=== PATIENT | male | born 1985 | race Caucasian/White ===

== ENCOUNTER 2019-09-06 08:10 | Outpatient (CLI) | payer BC, SELFPAY ==
[2019-09-06 18:41] LABS: Basophils Absolute Auto 0.1 K/mm3 (0.0-0.1); Basophils Percent Auto 1.1 % (0.2-1.2); Eosinophils Absolute Auto 0.1 K/mm3 (0-0.3); Eosinophils Percent Auto 2.2 % (0-4.4); Hematocrit 48.2 % (42.0-52.0); Hemoglobin 14.9 g/dL (14.0-18.0); Immature Granulocyte Absolute 0.03 K/mm3 (0.00-0.031); Immature Granulocyte Percent A 0.5 % (0-0.5); Lymphocytes Absolute Auto 1.55 K/mm3 (0.9-3.2); Mean Corpuscular HGB Conc 30.9 g/dl (32-36); Mean Corpuscular Volume 87.5 fl (80-100); Mean Platelet Volume 11.3 fl (7.4-10.4); Monocytes Absolute Auto 0.5 K/mm3 (0.1-0.6); Neutrophils Absolute Auto 3.3 K/mm3 (1.3-6.7); Neutrophils Percent Auto 59.2 % (45.5-73.1); Platelet Count Result 256 k/mm3 (150-375); Red Blood Count 5.51 M/mm3 (4.6-6.20); White Blood Count 5.5 K/mm3 (4.5-10.0)
[2019-09-06 18:50] LABS: Add Urine Microscopic? NO; Appearance Urine Clear (Clear); Bilirubin Urine Negative (Negative); Blood Urine Negative (Negative); Color Urine Yellow (Yellow); Glucose Urine UA Negative (Negative); Ketones Urine Negative (Negative); Leukocyte Esterase Ur Negative LEU/UL (Negative); Nitrate Urine Negative (Negative); Protein Urine Negative (Negative); Specific Grav Ur 1.012 (1.001-1.035); Urobilinogen Urine Negative mg/dL (<2.0)
[2019-09-06 18:53] LABS: Mucus Urine Rare /lpf; RBC Urine 0-2 /hpf (0-2); WBC Urine 0-3 /hpf
[2019-09-06 19:02] LABS: Alanine Aminotransferase 44 U/L (4-50); Albumin Level 4.6 g/dL (3.5-5.1); Alkaline Phosphatase 87 U/L (38-126); Aspartate Amino Transferase 33 U/L (17-59); Bilirubin,Total 0.7 mg/dL (0.2-1.3); Blood Urea Nitrogen 12 mg/dL (9-20); Calcium 9.9 mg/dL (8.4-10.2); Carbon Dioxide 28 mmol/L (22-30); Chloride 96 mmol/L (98-107); Cholesterol 162 mg/dL (0-200); Estimated Glomerular Filt Rate > 60; Glucose 98 mg/dL (75-110); HDL Direct 31 mg/dL; Iron 63 ug/dL (49-181); Potassium 4.3 mmol/L (3.4-5.0); Sodium 136 mmol/L (137-145); Triglycerides 74 mg/dL (<150)
[2019-09-06 19:05] LABS: Erythrocyte Sedimentation Rate 5 mm/hr (0-20)
[2019-09-06 19:12] LABS: LDL Cholesterol Direct 121 mg/dL; Percent Iron Saturation 16 % (20-50)
[2019-09-06 20:04] LABS: Vitamin D 25 Hydroxy 23.8 ng/mL
[2019-09-06 20:13] LABS: Folic Acid > 20.0 ng/mL (2.76->20)
[2019-09-10 12:21] LABS: C-Peptide 1.05 ng/mL (0.80-3.85)
[2019-09-12 12:02] LABS: Testosterone Total 492 ng/dL (250-1100)
== END 2019-09-06 08:11 | disposition home or self-care (01) ==
LOC: ANHBWCLAB 08:16
PROVIDERS: PCP Family Medicine; Visit Provider Family Medicine
DX: G47.10 Hypersomnia, unspecified (principal); Z79.899 Other long term (current) drug therapy; Z01.89 Encounter for other specified special examinations; K21.9 Gastro-esophageal reflux disease without esophagitis; R53.83 Other fatigue; R20.2 Paresthesia of skin; M79.601 Pain in right arm; M79.602 Pain in left arm; R51 Headache; N99.89 Other postprocedural complications and disorders of genitourinary system
CPT/HCPCS: 36415; 80053; 80061; 81003; 82306; 82607; 82728; 82746; 83540; 83550; 84402; 84403; 84443; 84681; 85025; 85652

== ENCOUNTER 2019-12-26 08:30 | Outpatient (CLI) | payer BC, SELFPAY ==
--- NOTE | ~2019-12-26 | MR_ITS ---
EXAMINATION: MR cervical spine wo con DATE: 12/26/2019 09:39 INDICATION: Paresthesias. Bilateral hand and shoulder numbness. TECHNIQUE: Magnetic resonance imaging (MRI) of the cervical spine was performed without intravenous c ontrast. Sequences included sagittal T2-weighted FSE, sagittal STIR FSE, sagittal T1-weighted FSE, ax ial MERGE, and axial T2-weighted FSE. COMPARISON: None FINDINGS: Bone alignment is normal. There is mild chronic anterior wedging of T1 vertebral body. Inte rvertebral disc heights are normal. The spinal cord signal intensity is normal. The following disc le vels are specifically discussed: C2-C3: The disc does not extend beyond the endplate margin. There is moderate left uncovertebral join t osteoarthritis. There is mild bilateral facet joint osteoarthritis. There is mild left neural magdalene inal stenosis. There is no central canal stenosis. C3-C4: The disc does not extend beyond the endplate margin. There is moderate left uncovertebral join t osteoarthritis. There is mild bilateral facet joint osteoarthritis. There is mild left neural magdalene inal stenosis. There is no central canal stenosis. C4-C5: The disc does not extend beyond the endplate margin. There is moderate bilateral uncovertebral joint osteoarthritis. There is no facet joint osteoarthritis. There is mild bilateral neural foramin al stenosis. There is no central canal stenosis. C5-C6: The disc does not extend beyond the endplate margin. There is moderate right and mild left unc overtebral joint osteoarthritis. There is mild bilateral facet joint osteoarthritis. There is moderat e right neural foraminal stenosis. There is no central canal stenosis. C6-C7: The disc does not extend beyond the endplate margin. There is mild bilateral uncovertebral wilmer nt osteoarthritis. There is mild bilateral facet joint osteoarthritis. There is mild bilateral neural foraminal stenosis. There is no central canal stenosis. C7-T1: The disc does not extend beyond the endplate margin. There is no uncovertebral joint osteoarth ritis. There is mild bilateral facet joint osteoarthritis. There is no neural foraminal stenosis. The re is no central canal stenosis. IMPRESSION: 1. Mild cervical spondylosis. Reviewed, dictated and finalized at location E.
== END 2019-12-26 08:31 | disposition home or self-care (01) ==
PROVIDERS: PCP Family Medicine; Visit Provider Psychiatry & Neurology Neurology
DX: R20.2 Paresthesia of skin (principal); M47.812 Spondylosis without myelopathy or radiculopathy, cervical region
CPT/HCPCS: 72141

== ENCOUNTER 2020-02-13 12:33 | Outpatient (CLI) | payer BC, SELFPAY ==
--- NOTE | ~2020-02-13 | CT_ITS ---
EXAMINATION: CT abdomen pelvis wo con DATE: 02/13/2020 13:18 INDICATION: Low abdominal pain. TECHNIQUE: Computed tomography (CT) of the abdomen and pelvis was performed without intravenous contr ast. Automated exposure control and iterative reconstruction technique were employed. The dose-length product was 763.59 mGy-cm. COMPARISON: None. FINDINGS: The visualized portions of the lung bases are clear without pneumonia or pleural effusion. The heart size is normal. No pericardial effusion. The liver, gallbladder, spleen, pancreas, adrenal glands, and kidneys are normal. There is no urolithiasis. There are scattered diverticula in the colo n. There is fat stranding around a diverticulum of the sigmoid colon. There is a punctate focus of fr ee intraperitoneal gas near the diverticulum. There are no dilated loops of bowel. The appendix is no rmal. There are no pathologically enlarged lymph nodes. There is trace pelvic ascites. There is mild thoracic and lumbar spondylosis. IMPRESSION: 1. Acute sigmoid diverticulitis with microperforation. No abscess. Reviewed, dictated and finalized at location A.
[2020-02-13 14:02] LABS: Basophils Absolute Auto 0.1 K/mm3 (0.0-0.1); Basophils Percent Auto 0.5 % (0.2-1.2); Eosinophils Absolute Auto 0.1 K/mm3 (0-0.3); Hemoglobin 14.5 g/dL (14.0-18.0); Immature Granulocyte Absolute 0.05 K/mm3 (0.00-0.031); Immature Granulocyte Percent A 0.4 % (0-0.5); Lymphocytes Absolute Auto 1.67 K/mm3 (0.9-3.2); Lymphocytes Percent Auto 13.8 % (18.3-44.2); Mean Corpuscular Hemoglobin 27.4 pg (26-34); Mean Corpuscular Volume 83.2 fl (80-100); Monocytes Absolute Auto 0.9 K/mm3 (0.1-0.6); Monocytes Percent Auto 7.8 % (2.6-8.5); Neutrophils Absolute Auto 9.2 K/mm3 (1.3-6.7); Neutrophils Percent Auto 76.5 % (45.5-73.1); Platelet Count Result 207 k/mm3 (150-375); Red Blood Count 5.29 M/mm3 (4.6-6.20); Red Cell Distribution Width 13.2 % (11.5-14.5); White Blood Count 12.1 K/mm3 (4.5-10.0)
[2020-02-13 14:07] LABS: Add Urine Microscopic? YES; Appearance Urine Clear (Clear); Bilirubin Urine Negative (Negative); Blood Urine Negative (Negative); Color Urine Yellow (Yellow); Glucose Urine UA Negative (Negative); Ketones Urine Negative (Negative); Leukocyte Esterase Ur Negative LEU/UL (NEGATIVE); Mucus Urine Rare /lpf; Nitrate Urine Negative (Negative); Protein Urine 1+ mg/dL (Negative); RBC Urine 0-2 /hpf (0-2); Specific Grav Ur 1.025 (1.001-1.035); Squamous Epithelial Cell Urine Rare /hpf (Few); WBC Urine 0-3 /hpf (0-3)
[2020-02-13 18:06] LABS: Blood Urea Nitrogen 12 mg/dL (9-20); Calcium 8.8 mg/dL (8.4-10.2); Carbon Dioxide 27 mmol/L (22-30); Chloride 104 mmol/L (98-107); Estimated Glomerular Filt Rate > 60; Glucose 93 mg/dL (75-110); Potassium 4.1 mmol/L (3.4-5.0); Sodium 139 mmol/L (137-145)
[2020-02-13 18:13] LABS: CRP 21.6 mg/dL (<1.0)
== END 2020-02-13 12:34 | disposition home or self-care (01) ==
PROVIDERS: PCP Family Medicine; Visit Provider Family Medicine
DX: K57.32 Diverticulitis of large intestine without perforation or abscess without bleeding (principal); R19.8 Other specified symptoms and signs involving the digestive system and abdomen; R30.0 Dysuria; Z79.899 Other long term (current) drug therapy
CPT/HCPCS: 36415; 74176; 80048; 81001; 85025; 86140; 87086; 87491; 87591

== ENCOUNTER 2020-02-13 16:50 | Inpatient (IN) | payer BC, SELFPAY ==
--- NOTE | 2020-02-13 17:06 | PC.NURSE ---
This patient, Bharat Wells, was admitted to Medical Room 342-01. Patient/family oriented to hospital policies and general routines including ID bracelet, bed and alarms, visiting hours, pain management, procedures, bathroom and other care routines, personal items, smoking policy, room service/diet, and visiting hours. Valuables list has been completed. Information on how to activate the Rapid Response Team has been discussed. Patient/Family are encouraged to report perceived risks to care and to ask questions if they do not understand what they are told or what they should do.
[2020-02-13 17:13] VITALS: BP 154/88; PULSE 93; RESP 16; TEMP 36.4; O2SAT 100
[2020-02-13 17:39] LABS: Basophils Absolute Auto 0.1 K/mm3 (0.0-0.1); Basophils Percent Auto 0.4 % (0.2-1.2); Eosinophils Absolute Auto 0.1 K/mm3 (0-0.3); Hematocrit 41.5 % (42.0-52.0); Hemoglobin 13.7 g/dL (14.0-18.0); Immature Granulocyte Absolute 0.05 K/mm3 (0.00-0.031); Immature Granulocyte Percent A 0.4 % (0-0.5); Lymphocytes Absolute Auto 1.37 K/mm3 (0.9-3.2); Mean Corpuscular Hemoglobin 27.6 pg (26-34); Mean Corpuscular Volume 83.5 fl (80-100); Mean Platelet Volume 10.8 fl (7.4-10.4); Monocytes Absolute Auto 0.8 K/mm3 (0.1-0.6); Monocytes Percent Auto 7.1 % (2.6-8.5); Neutrophils Absolute Auto 9.1 K/mm3 (1.3-6.7); Neutrophils Percent Auto 79.1 % (45.5-73.1); Platelet Count Result 193 k/mm3 (150-375); Red Blood Count 4.97 M/mm3 (4.6-6.20); Red Cell Distribution Width 13.3 % (11.5-14.5); White Blood Count 11.5 K/mm3 (4.5-10.0)
[2020-02-13 17:43] VITALS: BMI 32.5
[2020-02-13 22:00] VITALS: BP 148/89; PULSE 89; RESP 18; TEMP 36.4; O2SAT 98
[2020-02-13 22:15] VITALS: PULSE 89; RESP 18; O2SAT 98
[2020-02-13] MEDS: SODIUM CHLORIDE 0.9% IV 1,000 ML 100 ML IV CONT (22:37)
--- NOTE | 2020-02-13 22:45 | PM.IMHP ---
H&P: HPI History of Present Illness Chief complaint: Sigmoid diverticulitis with microperforation. Narrative: Bharat Wells is a previously healthy 34-year-old male who is being directly admitted for further treatment of sigmoid diverticulitis with micro perforation. Last Monday he reports a gradual onset of left lower extremity discomfort that he describes as a pressure-like in nature in addition to feelings of generalized malaise. He felt somewhat better on Monday, however he tweaked his back at work that day and thinks perhaps that overshadowed the abdominal discomfort. The abdominal pain returned on Monday and it has been nearly constant since that time, however not severe enough for him to take analgesics. The pain is worse with eating and some movements, mainly when driving in the car. Additionally he reports night sweats and fever up to 100.7?. He has not had much of an appetite but denies overt nausea and vomiting. He reports an increase in flatus but notes having daily bowel movements which are unremarkable. He had similar symptoms approximately 1 year ago and was seen at a local urgent care, at which time he was prescribed antibiotics for presumed prostatitis however it sounds like it was probably diverticulitis. Today he was sent for a CT of the abdomen and pelvis showing the diverticulitis with microperforation and he is being directly admitted in this setting. At the time my evaluation he notes manageable discomfort and has no other complaints aside from wanting to have a drink of water. Review of Systems Review of Systems: Narrative: Twelve systems were reviewed with pertinent positives and negatives as per HPI. No recent cold or flu symptoms. No cough or shortness of breath. He denies dysuria but does note some suprapubic pressure. No nausea or vomiting. He denies blood in mucus in the stool. He has occasional GERD for which she will take Tums. He also reports daytime somnolence and had a sleep study scheduled for November 2019 however that was canceled and he is still awaiting that be rescheduled. Except as documented, all other systems were reviewed and are negative. [facility] Past Medical History Medical History (Updated 02/13/20 @ 23:54 by Amber Carrasco PA-C) Cervical spine arthritis Cervical spine MRI in December 2019 showed mild spondylosis. Gastroesophageal reflux disease Suspected sleep apnea Patient has upcoming sleep study. Surgical History Surgical History (Updated 02/13/20 @ 20:29 by Amber Carrasco PA-C) History of arthroscopy of left knee History of arthroscopy of left shoulder Family History Family History (Updated 02/13/20 @ 23:53 by Amber Carrasco PA-C) Father Ulcerative colitis Social History Social History (Updated 02/13/20 @ 23:53 by Amber Carrasco PA-C) Social History: The patient lives in [place], [place] with his and 2 young children, aged 4 in 8 months. 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 He chews tobacco and drinks perhaps 20-25 beers a week. No illicit substance use. He designates his as his surrogate decision maker and he wishes to be a full code. Tobacco type: smokeless tobacco Smokeless tobacco user: chewing tobacco Alcohol intake: current Drinks per week: 25 Substance use: never Substance use type: other Other substance usage details: smokeless tobacco Gender identity (if verbalized by the patient): Male Spiritual care concerns: No Meds Home Medications and Allergies Home Medications Medication Instructions Recorded Confirmed Type No Home Medications 02/13/20 02/13/20 History Allergies Allergy/AdvReac Type Severity Reaction Status Date / Time No Known Allergies Allergy Unverified 02/13/20 10:51 Vital Signs Vital Signs - 24 hr 02/13/20 17:13 Temperature 97.5 F L Pulse Rate 93 Respiratory Rate 16 Blood Pressure 154/88 H Pulse Oximetry 100 Exam Narrative: Exam Narrativ
[2020-02-14 05:22] VITALS: BP 135/85; PULSE 82; RESP 16; TEMP 36.8; O2SAT 99
[2020-02-14 05:50] LABS: Basophils Absolute Auto 0.1 K/mm3 (0.0-0.1); Basophils Percent Auto 0.6 % (0.2-1.2); Eosinophils Absolute Auto 0.1 K/mm3 (0-0.3); Eosinophils Percent Auto 1.5 % (0-4.4); Hematocrit 42.2 % (42.0-52.0); Hemoglobin 13.7 g/dL (14.0-18.0); Immature Granulocyte Absolute 0.03 K/mm3 (0.00-0.031); Immature Granulocyte Percent A 0.4 % (0-0.5); Lymphocytes Absolute Auto 1.49 K/mm3 (0.9-3.2); Mean Corpuscular HGB Conc 32.5 g/dl (32-36); Mean Corpuscular Hemoglobin 27.4 pg (26-34); Mean Corpuscular Volume 84.4 fl (80-100); Mean Platelet Volume 10.8 fl (7.4-10.4); Monocytes Absolute Auto 0.7 K/mm3 (0.1-0.6); Neutrophils Absolute Auto 5.9 K/mm3 (1.3-6.7); Neutrophils Percent Auto 71.5 % (45.5-73.1); Platelet Count Result 199 k/mm3 (150-375); Red Cell Distribution Width 13.2 % (11.5-14.5); White Blood Count 8.3 K/mm3 (4.5-10.0)
[2020-02-14 06:08] LABS: Blood Urea Nitrogen 10 mg/dL (9-20); Calcium 8.6 mg/dL (8.4-10.2); Carbon Dioxide 27 mmol/L (22-30); Chloride 103 mmol/L (98-107); Estimated CRCL calculation 118 ml/min; Estimated Glomerular Filt Rate > 60; Glucose 91 mg/dL (75-110); Potassium 4.1 mmol/L (3.4-5.0); Sodium 138 mmol/L (137-145)
[2020-02-14] MEDS: SODIUM CHLORIDE 0.9% IV 1,000 ML 100 ML IV CONT (08:25)
--- NOTE | 2020-02-14 12:10 | PM.CNGS ---
Assessment and Plan Assessment and plan (1) Diverticulitis of intestine with perforation without abscess or bleeding: Code(s): K57.80 - Diverticulitis of intestine, part unspecified, with perforation and abscess without bleeding Status: Acute Assessment and Plan: Abdominal exam is currently benign, tolerating clear liquid diet, white count normal on broad-spectrum antibiotics, will advance to low residue diet, if tolerating diet would change to p.o. antibiotics and DC home, patient to follow up with me in 2 weeks post discharge and will need interval colonoscopy (2) Gastroesophageal reflux disease: Code(s): K21.9 - Gastro-esophageal reflux disease without esophagitis Status: Acute Assessment and Plan: PPI (3) Suspected sleep apnea: Code(s): R29.818 - Other symptoms and signs involving the nervous system Status: Acute Assessment and Plan: management per primary team History of Present Illness Consult details Consult date: 02/14/20 Reason for consult: abdominal pain Requesting physician: Magalie Fregoso PA-C Narrative: Patient was admitted through to the hospitalist service complaining of significant lower abdominal pain progressively worsening over the last week. Patient had CT scan as outpatient that was significant for complicated diverticulitis with microperforation. The patient reports some subjective fevers and chills at home. The patient reports he has been tolerating a diet however, has had a poor appetite. The patient reports normal bowel function. The patient reports a similar episode about a year ago that resolved with p.o. antibiotics. Review of Systems Constitutional: Constitutional: Reports chills, Reports fatigue, Denies lethargy and Denies weakness Eyes: Eyes: Reports no additional eye complaints ENT: Reports Normal hearing present Cardiovascular: Cardiovascular: Denies chest pain, Denies syncope, Denies irregular heart rhythm, Denies leg edema and Denies dyspnea Respiratory: Respiratory: Denies cough and Denies dyspnea Gastrointestinal: Gastrointestinal: Reports abdominal pain, Denies bloating, Denies change in bowel habits, Denies change in stool character, Denies constipation, Denies dysphagia, Denies heartburn, Denies diarrhea, Denies nausea and Denies vomiting Genitourinary: Genitourinary: Denies dysuria, Denies urinary frequency and Denies urinary urgency Musculoskeletal: Musculoskeletal: Denies myalgias, Denies arthralgias and Denies muscle cramps Integumentary/Breasts: Skin/Breast: Denies non-healing lesions and Denies rash Neurologic: Denies syncope, Denies headache(s) and Denies loss of vision Psychiatric: Psychiatric: Reports no additional psychiatric complaints Endocrine: Endocrine: Denies change in body appearance and Denies fatigue Hematologic/Lymphatic: Hematologic/Lymphatic: Denies easy bleeding, Denies easy bruising and Denies lymphadenopathy PMFSH Past Medical History Medical History Cervical spine arthritis Cervical spine MRI in December 2019 showed mild spondylosis. Gastroesophageal reflux disease Suspected sleep apnea Patient has upcoming sleep study. Surgical History Surgical History History of arthroscopy of left knee History of arthroscopy of left shoulder Family History Family History Father Ulcerative colitis Social History Social History Social History: The patient lives in [place], [place] with his and 2 young children, aged 4 in 8 months. 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 He chews tobacco and drinks perhaps 20-25 beers a week. No illicit substance use. He designates his as his surrogate decision maker and he wishes to be a full code. Tobacco type: smokel
[2020-02-14 14:00] VITALS: BP 152/65; PULSE 83; RESP 16; TEMP 36.4; O2SAT 98
--- NOTE | 2020-02-14 15:20 | PM.DS ---
DS: Admitting Diagnosis Admitting Diagnosis Admitting Diagnosis: Diverticulitis of intestine, part unspecified, with perforation and abscess without bleeding DS: Discharge Diagnosis Discharge Diagnosis (1) Diverticulitis of intestine with perforation without abscess or bleeding: Code(s): K57.80 - Diverticulitis of intestine, part unspecified, with perforation and abscess without bleeding Status: Acute Assessment and Plan: He had complaints of left lower abdominal pain. CT a/P showed acute sigmoid diverticulitis with micro perforation and no abscess. He was started on Zosyn and was seen in consultation by General surgery. His abdominal pain improved and he was able to advance his diet to low fiber. Blood cultures were negative. He was rehydrated with IV fluids. He will continue Cipro and Flagyl to complete a total of 7 days treatment and follow-up with Dr. Grace in 2 weeks. (2) Gastroesophageal reflux disease: Code(s): K21.9 - Gastro-esophageal reflux disease without esophagitis Status: Acute Assessment and Plan: He reports chronic, daily GERD symptoms and was started on a daily PPI for symptomatic relief. (3) Suspected sleep apnea: Code(s): R29.818 - Other symptoms and signs involving the nervous system Status: Acute Assessment and Plan: He is scheduled to have an outpatient sleep study in the near future. DS: Summary Hospital Course Reason for hospitalization: Abdominal pain Hospital Course: Date of admission: 02/13/2020 Date of discharge: 02/14/2020 Bharat Wells is a 34-year-old male with a history of GERD and suspected sleep apnea who presented to the hospital for direct admission from his PCP Dr. Chen for further treatment of sigmoid diverticulitis with microperforation. He had feelings of general malaise, as well as night sweats, fever, and poor appetite. He was admitted to the hospitalist service and seen in consultation by General surgery. Please see above for further details. His abdominal exam was benign and his symptoms improved. He was able to tolerate a low-fiber diet which he will continue until further follow-up with Dr. Grace. He will continue oral antibiotics as an outpatient. Given his improvement symptoms, he was determined to no longer require inpatient care. Patient was comfortable discharge plans. He was discharged home in hemodynamically stable condition on 02/14/2020. Status at Discharge Functional status at discharge: independent ambulation Overall status at discharge: patient is progressing back to baseline Time Spent with Patient Time attestation: Total time spent providing and/or coordinating discharge services: 38 minutes Time spent: Greater than 30 minutes Exam Narrative: Exam Narrative: Mr. Wells is examined alone today. He is a well-nourished, well-appearing 34-year-old male who is lying semi recumbent in bed. He appears comfortable and is in no acute respiratory distress. HR 83, BP 152/65, R 16, T 97.6?, 98% on room air Neuro: awake, alert and oriented x4, speech clear, no focal neuro deficits noted HEENMT: normocephalic, atraumatic, EOMI, sclerae anicteric, moist oral mucosa Neck: supple, no lymphadenopathy Respiratory: clear to auscultation bilaterally, normal respiratory effort Cardio: regular rate, regular rhythm, normal S1 and S2 Abdomen: normal to inspection, nondistended, normoactive bowel sounds, soft, mildly tender to palpation in left lower quadrant, no rigidity or guarding Extremities: BLE without edema, erythema, or tenderness to palpation, dorsal pedis pulses palpable bilaterally Skin: no rashes or lesions, warm and dry Psych: Pleasant and cooperative, normal mood and affect, judgment and insight intact DS: Data Data Completed and Pending Labs on day of discharge: Labs from last 24 hours 02/14/20 02/14/20 02/13/20 05:40 05:40 17:33 WBC 8.3 RBC 5.00 Hgb 13.7 L Hct
== END 2020-02-14 15:56 | disposition home or self-care (01) | DRG 392 ==
PROVIDERS: Physician Assistant; Admitting Provider Family Medicine; PCP Family Medicine; Visit Provider Physician Assistant
DX: K57.20 Diverticulitis of large intestine with perforation and abscess without bleeding (principal); K21.9 Gastro-esophageal reflux disease without esophagitis; R29.818 Other symptoms and signs involving the nervous system; M47.892 Other spondylosis, cervical region; F17.220 Nicotine dependence, chewing tobacco, uncomplicated
CPT/HCPCS: 36415; 74176; 80048; 81001; 83605; 83735; 85025; 86140; 87040; 87086; 87491; 87591; J2543; J7030

== ENCOUNTER 2020-03-04 10:29 | Outpatient (CLI) | payer BC, SELFPAY ==
--- NOTE | 2020-03-09 11:06 | SLEEP_ITS ---
Home Sleep Test DATE OF STUDY: 03/04/2020 ORDERING PHYSICIAN: Rubio Chen DO. REASON FOR THIS STUDY: Hypersomnia. HISTORY: The patient is a 34-year-old male, 6 feet tall weighing 253 pounds with a body mass index of 34.3. He has poor quality sleep with night sweats, snoring, excessive daytime sleepiness and waking feeling non-refreshed. He has a mid morning crash. This is extremely severe and has been going on for years. 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 He frequently snores and it is loud enough that others complain about it. He occasionally awakens at night with heartburn, belching, or coughing and awakens from sleep feeling short of breath. He occasionally has trouble sleeping with a cold and occasionally gasps for breath at night. He frequently has breathing problems at night observed by others and frequently sweats excessively at night. He frequently notices his heart pounding or beating irregularly at night. He occasionally falls asleep during the day. He frequently falls asleep involuntarily. He occasionally falls asleep while driving, rarely during physical effort, never while laughing, crying. He does not have loss of muscle tone with strong emotion. He occasionally has daytime difficulties due to excessive sleepiness. He never feels paralyzed on waking or falling asleep. He occasionally has vivid dreamlike scenes when he awakens or falls asleep. He is never afraid to go to sleep. He rarely has nightmares. He occasionally remembers his dreams, occasionally has racing thoughts, rarely feels sad, depressed, occasionally has anxiety. He occasionally has muscular tension. He does not notice parts of his body jerking and he rarely kicks at night. He does not have crawly achy feelings in his legs. He does not have leg pain at night. He does not have morning jaw pain. He does not grind his teeth at night. He occasionally is bothered by pain during the day, never he is awakened by pain during the night. He frequently wakes up feeling stiff in the morning, occasionally with sore achy muscles, occasionally with pain in the neck and spine. He has stomach problems, fatigue, memory problems, concentration difficulties, bowel disturbances, headaches, poor appetite and he takes antacids regularly. Normal bedtime is 9 p.m., falling asleep within 2 minutes, waking anywhere between 0 and 2 times at night for 2 minutes. When he awakens, he will roll over and go back to sleep. He awakens in the morning between 4 and 4:30 a.m. On the weekends, he stays up until 10 or 12:00 p.m. and wakes up between 8 or 9:00 a.m., so he is getting recovery sleep. He does take naps. Sometimes, a short nap can be refreshing. He is usually drowsy in the morning for 3 hours or longer. MEDICAL COMORBIDITIES: GERD, upper limb paresthesias, fatigue. MEDICATIONS: None regularly. HABITS: No mention of tobacco. Caffeine 2 to 3 per day. No alcohol or recreational drugs. DESCRIPTION OF THE STUDY: On the [place] Sleepiness Scale, the score is 12. This test was conducted as an unattended type 3 portable home sleep test using 4 channel monitoring with respiratory effort channel, snoring channel, oxygen saturation channel, and heart rate channel. The study was scored using CMS guidelines. Duration was 5 hours 55 minutes. The apnea-hypopnea index was 2.4, normal. The oxygen desaturation index was 3.1. Lowest desaturation was 86%. The patient had 5 apneas, which were all central. He had 9 hypopneas. He had 92 snoring events. The patient had 1 desaturation and spent no time below 88%. Heart rate ranged from 49 to 115. IMPRESSION: This home sleep test does not show evidence of significant sleep-disordered breathing. However, his symptom
== END 2020-03-04 10:30 | disposition home or self-care (01) ==
LOC: ANHCSM 10:29
PROVIDERS: PCP Family Medicine; Visit Provider Family Medicine
DX: G47.10 Hypersomnia, unspecified (principal); R53.83 Other fatigue
CPT/HCPCS: 95806

== ENCOUNTER 2020-03-21 01:47 | Outpatient (CLI) | payer BC, SELFPAY ==
[2020-03-21 18:01] LABS: SARS-CoV-2 RNA PCR Negative
== END 2020-03-21 01:48 | disposition home or self-care (01) ==
LOC: ANHCOVIDDT 01:48
PROVIDERS: PCP Family Medicine; Visit Provider Internal Medicine Gastroenterology
DX: Z01.812 Encounter for preprocedural laboratory examination (principal); Z20.828 Contact with and (suspected) exposure to other viral communicable diseases
CPT/HCPCS: 87635; C9803; U0003

== ENCOUNTER 2020-03-24 03:59 | Day surgery (SDC) | payer BC, SELFPAY ==
[2020-03-16 15:59] VITALS: BMI 31.4
[2020-03-24 08:59] VITALS: BP 142/96; PULSE 64; RESP 18; TEMP 36.7; O2SAT 99
[2020-03-24] MEDS: LACTATED RINGERS 1,000 ML 150 ML IV CONT (09:05)
--- NOTE | 2020-03-24 09:25 | P.PNAN_ITS ---
Anes - Initial Pre Proc Eval Procedure: Operation Date: 03/24/20 10:15 Proposed Procedures p Colonoscopy - Alex Johnston MD Date/Time: 03/24/20 09:25 Surgeon: Alex Johnston MD Pre Op Diagnosis: Diverticulitis Patient Data Age: 34 Gender: M Height: 6 ft Weight: 101.9 kg Last Vital Signs Temp 98.0 F 03/24/20 08:59 Pulse 64 03/24/20 08:59 Resp 18 03/24/20 08:59 BP 142/96 H 03/24/20 08:59 Pulse Ox 99 03/24/20 08:59 Allergies Allergy/AdvReac Type Severity Reaction Status Date / Time No Known Allergies Allergy Verified 03/24/20 08:59 Home Medications Medication Instructions Recorded Confirmed Type omeprazole 20 mg PO DAILY #30 tablet 02/14/20 03/24/20 Rx peg 3350-electrolytes 236 240 ml PO Q10M #4000 ml 03/16/20 Rx gram-22.74 gram-6.74 gram-5.86 gram solution Patient hx anesthesia problems: none Family hx anesthesia problems: none PMFSH Social History Social History Social History: The patient lives in [place], [place] with his and 2 young children, aged 4 in 8 months. 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 He chews tobacco and drinks perhaps 20-25 beers a week. No illicit substance use. He designates his as his surrogate decision maker and he wishes to be a full code. Tobacco type: smokeless tobacco Smokeless tobacco user: chewing tobacco Alcohol intake: current Drinks per week: 25 Substance use: never Substance use type: other Other substance usage details: smokeless tobacco Gender identity (if verbalized by the patient): Male Spiritual care concerns: No Anes - Eval Final PreProcedure Day of Procedure 03/24/20 09:25 Patient weight: normal Heart: regular rate and rhythm Lungs: clear to auscultation Airway: Mallampati scale Last oral intake: >/= 8 hours ASA classification: II Emergent: no Anesthetic plan: proceed Anesthesia type and monitoring: general GIVS and standard monitoring Informed Consent: The patient's anesthetic plan and its attendant risks and benefits were discussed with the patient/family/POA. Questions were solicited and answers provided to the satisfaction of the patient/family/POA.
--- NOTE | 2020-03-24 10:40 | WPDHPUPDATE1 ---
History and Physical Update Update Date/Time: 03/24/20 10:40 History and Physical has been reviewed, including an updated exam of the patient. There are NO changes in the patient's condition. Risks, benefits, and alternatives have been discussed and questions answered. Patient agrees to proceed with procedure.
[2020-03-24 11:03] VITALS: BP 108/70; PULSE 61; RESP 15; O2SAT 100
[2020-03-24 11:13] VITALS: BP 125/84; PULSE 77; RESP 21; O2SAT 100
[2020-03-24 11:23] VITALS: BP 135/67; PULSE 66; RESP 18; O2SAT 100
== END 2020-03-24 11:40 | disposition home or self-care (01) ==
PROVIDERS: PCP Family Medicine; Visit Provider Internal Medicine Gastroenterology
PROC: 0DJD8ZZ Inspection of Lower Intestinal Tract, Via Natural or Artificial Opening Endoscopic (ICD-10-PCS; CPT 45378; principal; 2020-03-24 10:15)
DX: K57.30 Diverticulosis of large intestine without perforation or abscess without bleeding (principal); K64.8 Other hemorrhoids; Z87.19 Personal history of other diseases of the digestive system; F17.220 Nicotine dependence, chewing tobacco, uncomplicated
CPT/HCPCS: 45378; J2704; J7120

== ENCOUNTER 2021-04-15 15:29 | Outpatient (CLI) | payer OTHER, SELFPAY ==
[2021-04-15 19:01] LABS: Hematocrit 46.7 % (42.0-52.0); Hemoglobin 15.2 g/dL (14.0-18.0); Mean Corpuscular HGB Conc 32.5 g/dl (32-36); Mean Corpuscular Volume 86.2 fl (80-100); Mean Platelet Volume 11.2 fl (7.4-10.4); Platelet Count Result 245 k/mm3 (150-375); Red Blood Count 5.42 M/mm3 (4.6-6.20); Red Cell Distribution Width 12.7 % (11.5-14.5); White Blood Count 7.4 K/mm3 (4.5-10.0)
[2021-04-15 21:15] LABS: Hemoglobin A1C 5.2 % (<5.7)
[2021-04-15 21:20] LABS: Alanine Aminotransferase 40 U/L (4-50); Albumin Level 4.6 g/dL (3.5-5.1); Alkaline Phosphatase 71 U/L (38-126); Anion Gap 11 mmol/L (8-16); Aspartate Amino Transferase 23 U/L (17-59); Bilirubin,Total 0.9 mg/dL (0.2-1.3); Blood Urea Nitrogen 19 mg/dL (9-20); Calcium 9.7 mg/dL (8.4-10.2); Carbon Dioxide 27 mmol/L (22-30); Chloride 100 mmol/L (98-107); Cholesterol 177 mg/dL (0-200); Estimated Glomerular Filt Rate > 60; Glucose 99 mg/dL (65-110); HDL Direct 39 mg/dL; Potassium 4.2 mmol/L (3.4-5.0); Sodium 138 mmol/L (137-145); Triglycerides 197 mg/dL (<150)
[2021-04-15 21:30] LABS: LDL Cholesterol Direct 104 mg/dL
== END 2021-04-15 15:30 | disposition home or self-care (01) ==
LOC: ANHBWCLAB 15:30
PROVIDERS: PCP Family Medicine; Visit Provider Family Medicine
DX: Z00.00 Encounter for general adult medical examination without abnormal findings (principal); E66.9 Obesity, unspecified; R53.83 Other fatigue; R29.818 Other symptoms and signs involving the nervous system
CPT/HCPCS: 36415; 80053; 80061; 83036; 84443; 85027

== ENCOUNTER 2023-06-28 14:19 | Outpatient (CLI) | payer OTHER, SELFPAY ==
[2023-06-28 19:33] LABS: Hematocrit 45.3 % (42.0-52.0); Hemoglobin 14.6 g/dL (14.0-18.0); Mean Corpuscular HGB Conc 32.2 g/dl (32-36); Mean Corpuscular Hemoglobin 27.6 pg (26-34); Mean Corpuscular Volume 85.6 fl (80-100); Mean Platelet Volume 10.8 fl (7.4-10.4); Platelet Count Result 245 k/mm3 (150-375); Red Blood Count 5.29 M/mm3 (4.6-6.20); Red Cell Distribution Width 13.1 % (11.5-14.5); White Blood Count 8.5 K/mm3 (4.5-10.0)
[2023-06-28 19:34] LABS: LDL Cholesterol Direct 110 mg/dL
[2023-06-28 19:40] LABS: Alanine Aminotransferase 35 U/L (6-50); Albumin Level 4.7 g/dL (3.5-5.1); Alkaline Phosphatase 69 U/L (38-126); Anion Gap 9 mmol/L (8-16); Aspartate Amino Transferase 27 U/L (17-59); Bilirubin,Total 0.6 mg/dL (0.2-1.3); Blood Urea Nitrogen 17 mg/dL (9-20); Calcium 9.9 mg/dL (8.4-10.2); Carbon Dioxide 28 mmol/L (22-30); Chloride 101 mmol/L (98-107); Cholesterol 175 mg/dL (0-200); Estimated Glomerular Filt Rate 53; Glucose 92 mg/dL (65-110); HDL Direct 47 mg/dL; Potassium 4.7 mmol/L (3.4-5.0); Sodium 138 mmol/L (137-145); Triglycerides 67 mg/dL (<150)
== END 2023-06-28 14:20 | disposition home or self-care (01) ==
LOC: ANHBWCLAB 14:20
PROVIDERS: PCP Nurse Practitioner Adult Health; Visit Provider Nurse Practitioner Adult Health
DX: Z13.9 Encounter for screening, unspecified (principal)
CPT/HCPCS: 36415; 80053; 80061; 85027

== ENCOUNTER 2024-07-01 11:31 | Outpatient (CLI) | payer OTHER, SELFPAY ==
[2024-07-01 19:00] LABS: Alanine Aminotransferase 31 U/L (6-50); Albumin Level 4.5 g/dL (3.5-5.1); Alkaline Phosphatase 54 U/L (38-126); Anion Gap 7 mmol/L (4-12); Aspartate Amino Transferase 32 U/L (17-59); Bilirubin,Total 0.7 mg/dL (0.2-1.3); Blood Urea Nitrogen 15 mg/dL (9-20); Calcium 9.3 mg/dL (8.4-10.2); Carbon Dioxide 28 mmol/L (22-30); Chloride 101 mmol/L (98-107); Cholesterol 160 mg/dL (0-200); Estimated Glomerular Filt Rate > 60; Glucose 87 mg/dL (65-110); HDL Direct 33 mg/dL; Potassium 4.9 mmol/L (3.4-5.0); Sodium 136 mmol/L (137-145); Triglycerides 67 mg/dL (<150)
[2024-07-01 19:11] LABS: LDL Cholesterol Direct 108 mg/dL
== END 2024-07-01 11:32 | disposition home or self-care (01) ==
LOC: ANHBWCLAB 11:32
PROVIDERS: PCP Nurse Practitioner Adult Health; Visit Provider Nurse Practitioner Adult Health
DX: Z13.9 Encounter for screening, unspecified (principal)
CPT/HCPCS: 36415; 80053; 80061

== ENCOUNTER 2025-07-22 13:29 | Outpatient (CLI) | payer OTHER, SELFPAY ==
--- OUTSIDE RECORDS SUMMARY | 2025-07-22 15:36 | XMS_ITS | Clinical Summary ---
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 Name Role Phone Provider, Unknown Primary Care Provider Unavaila ble Allergies No known active allergies Medications No known medications Social History Tobacco Use Types Packs/Day Years Used Date Smoking Tobacco: Never Smokeless Tobacco: Current Alcohol Use Standard Drinks/Week Comments Yes 0 (1 standard drink = 0.6 oz pur e alcohol) Sex and Gender Information Value Date Recorded Sex Assigned at Not on file Legal Sex Male 12:17 AM CDT Gender Identity Not on file Sexual Orientation Not on file Last Filed Vital Signs Vital Sign Reading Time Taken Comments Blood Pressure 141/78 09/07/2018 2:37 PM [employer] Pulse 108 09/07/2018 2:37 PM [employer] Temperature 38.6 C (101.5 F) 09/07/2018 2:37 PM [employer] Respiratory Rate 16 09/07/2018 2:37 PM [employer] Oxygen Saturation 97% 09/07/2018 2:37 PM [employer] Inhaled Oxygen Concentration - - Weight 108.9 kg (240 lb) 09/07/2018 2:37 PM [employer] Height 182.9 cm (6') 09/07/2018 2:37 PM [employer] Body Mass Index 32.55 09/07/2018 2:37 PM [employer] Plan of Treatment Health Maintenance Due Date Last Done Comments Hepatitis C Virus (HCV) Screening 1986 TdaP Immunization 1986 Hepatitis B Immunization (1 of 3 - 19+ 3-dose series) 2005 Human Papillomavirus (HPV) Immunization (1 - 3-dose SCDM series) 2013 Influenza Immunization (#1) 2025 SARS-COV-2 Immunization ( season) 2025 03/31/2021 Respiratory Syncytial Virus (RSV) Immunization (Adult) (1 - 1-dose 75+ series) 2061 Meningococcal Immunization (ACWY) Aged Out No longer eligible based on patient's age to complete this topic Pneumococcal Immunization Combined Aged Out No longer eligible based on patient's age to complete this topic Rotavirus Immunization Aged Out No lo nger eligible based on patient's age to complete this topic Insurance [facility] Care Teams Cage Cashier Relationship Specialty Start Date End Date Provider, Unknown UNKNOWN PCP - General 09/07/18
[2025-07-22 19:17] LABS: Hematocrit 46.5 % (42.0-52.0); Hemoglobin 14.9 g/dL (14.0-18.0); Mean Corpuscular HGB Conc 32.0 g/dl (32-36); Mean Corpuscular Hemoglobin 27.2 pg (26-34); Mean Corpuscular Volume 84.9 fl (80-100); Platelet Count Result 280 k/mm3 (150-375); Red Blood Count 5.48 M/mm3 (4.6-6.20); White Blood Count 10.2 K/mm3 (4.5-10.0)
[2025-07-22 19:19] LABS: Alanine Aminotransferase 37 U/L (6-50); Albumin Level 4.7 g/dL (3.5-5.1); Alkaline Phosphatase 67 U/L (38-126); Anion Gap 8 mmol/L (4-12); Aspartate Amino Transferase 56 U/L (17-59); Bilirubin,Total 0.4 mg/dL (0.2-1.3); Blood Urea Nitrogen 20 mg/dL (9-20); Calcium 9.7 mg/dL (8.4-10.2); Carbon Dioxide 33 mmol/L (22-30); Chloride 98 mmol/L (98-107); Cholesterol 165 mg/dL (0-200); Estimated Glomerular Filt Rate > 60; Glucose 84 mg/dL (65-110); HDL Direct 43 mg/dL; Potassium 4.6 mmol/L (3.4-5.0); Sodium 139 mmol/L (137-145); Total Protein 8.0 g/dL (6.3-8.2); Triglycerides 89 mg/dL (<150)
== END 2025-07-22 13:30 | disposition home or self-care (01) ==
LOC: ANHBWCLAB 13:30
PROVIDERS: PCP Nurse Practitioner Adult Health; Visit Provider Nurse Practitioner Adult Health
DX: Z13.9 Encounter for screening, unspecified (principal)
CPT/HCPCS: 36415; 80053; 80061; 85027